=== PATIENT | male | born 1980 | race Caucasian/White ===

== ENCOUNTER 2024-08-28 19:29 | Emergency (ER) | payer OTHER, SELFPAY ==
[2024-08-28 19:33] VITALS: BP 155/106; PULSE 85; O2SAT 100
[2024-08-28 19:42] VITALS: BP 149/76; PULSE 71; RESP 16; TEMP 36.6; O2SAT 100; BMI 22.8
--- NOTE | 2024-08-28 19:46 | ED_ITS ---
HPI - Nausea/Vomiting/Diarrhea General Chief complaint: Nausea/Vomiting/Diarrhea Stated complaint: nausea vomit, hx simialar symtoms had dka in past Time Seen by Provider: 08/28/24 19:46 Source: patient History of Present Illness ED Provider: Zander Salazar DO HPI Narrative: 44-year-old male with insulin-dependent type 1 diabetes presents to the ED for acute onset nausea and nonbilious/nonbloody vomiting episodes starting at 17:00 today, a few hours ago. Patient states he has been taking his insulin regularly and has a monitor on his skin at all times. He did note that his glucose levels were elevated to 300 earlier. He did not have any food prior to the episodes of nausea and vomiting. He denies cannabis use. Denies abdominal pain, difficulty breathing, chest pain, diarrhea, fevers, chills or any other illnesses. He states his symptoms are similar to previous DKA episodes. He has no records here to review. Related Data Previous Rx's ?Medication ?Instructions ?Recorded ondansetron 4 mg disintegrating 4 mg PO Q8H PRN nausea and 08/28/24 tablet vomiting #7 tabs Allergies Allergy/AdvReac Type Severity Reaction Status Date / Time No Known Allergies Allergy Verified 08/28/24 19:42 Review of Systems 2 Review of Systems: Yes all other systems are reviewed and are negative PMFSH Social History Social History Advance Directives: No Advance Directives Information Provided: No Do you have a plan to hurt others: No Plan Physical Exam 2 Vital Signs: Vital Signs: Last Vital Signs Temp 97.9 F 08/28/24 20:02 Pulse 73 08/28/24 20:02 Resp 19 08/28/24 20:02 BP 144/75 H 08/28/24 20:02 Pulse Ox 99 08/28/24 20:02 O2 Del Method Room Air 08/28/24 20:02 BMI result Body Mass Index 22.8 Constitutional: ?Alert, wailing in pain, appears uncomfortable, has 2 episodes of emesis into bag which appears yellow/brown HEENT: ?Tacky mucous membranes Eyes: ?PERRL, EOMI Neck: ?Supple, nontender Chest: ?No chest wall tenderness Respiratory: ?Lungs clear to auscultation, no increased work of breathing Cardio: ?Regular rate and rhythm, no murmur, 2+ radial and DP pulses symmetrically GI: ?Soft, nondistended, nontender Back: ?Normal range of motion, nontender Skin: ?No rash, no lesions Neuro: ?Alert and oriented to person, place and time, moves all 4 extremities, no focal deficits Extremities: ?No swelling or tenderness, full range of motion Psych: ?Anxious, alert and cooperative Medications Administered Discontinued Medications Generic Name Dose Route Start Last Admin Trade Name Rony PRN Reason Stop Dose Admin Haloperidol Lactate 5 mg 08/28/24 19:53 08/28/24 19:58 Haloperidol Lactate 5 Mg/Ml Vial IVPUSH 08/28/24 19:54 5 mg STAT STA Administration Medical Decision Making Medical Decision Making [facility] Narrative: Patient presenting with acute episodes of nausea. Differential diagnosis is broad which includes intra-abdominal pathology such as biliary pathology, pancreatitis, gastritis, cannabinoid hyperemesis syndrome, other cyclic vomiting syndrome and DKA. The patient's glucose here is 171. He is not on SGLT2 inhibitor. It is possible that he is having a euglycemic or mild DKA. Denies alcohol use. He has no tenderness on exam and biliary pathology is unlikely. Given the extent of his nausea, we will treat with haloperidol 5 mg IV and reassess. Patient improved significantly and is discharged to home in a stable state. No signs of DKA given his labs without acidosis and no clinical concerns for any other concerning pathology causing his symptoms. Admission/Observation Consideration of admission/observation: Escalation of care including admission/observation considered Lab Data [facility] Lab Attestation statement: I reviewed the patient's lab results. Labs per my interpretation: Unremarkable sodium, mild hypokalemia to 3.2, low bicarb to 20, unremarkable renal function, elevated BUN, anion gap elevated to 70, glucose of 198, magnesium of 1.8, unremarkable CBC, venous blood gas showing an elevated pH is 7.59 which is likely secondary to the patient's intermittent hyperventilation when he was in pain, bicarb mildly low at 21. Importantly, the patient does not appear to be in DKA. 20:50: The patient appears much more comfortable, in no acute pain distress and has no tenderness on repeat exam. He accepts offered cynthia eddi and tolerates it without recurrent vomiting. We discussed that he should consider stopping cannabis use as this could be contributing to his symptoms. Prescribed a short course of Zofran. Return precautions provided. 08/28/24 20:00 08/28/24 20:00 Labs: Lab Results 08/28/24 08/28/24 08/28/24 Range/Units 19:43 20:00 20:05 WBC 6.1 (4.8-10.8) X10*3/uL RBC 4.61 (4.60-5.80) X10*6/uL Hgb 13.6 L (14.0-18.0) g/dl Hct 39.1 L (42.0-52.0) % MCV 84.8 (80.0-98.0) fL MCH 29.5 (27.0-33.0) pg MCHC 34.8 (31.0-36.0) g/dl RDW 12.0 (11.0-16.0) % Plt Count 263 (160-400) X10*3/uL MPV 10.0 (9.4-12.4) fL Immature Gran % (Auto) 0.3 (0.0-0.4) % Neut % (Auto) 66.3 (45-73) % Lymph % (Auto) 25.5 (20-40) % [place] % (Auto) 7.2 (2-11) % Eos % (Auto) 0.2 (0-4) % Baso % (Auto) 0.5 (0-2) % Lymph # (Auto) 1.6 (1.2-4.9) X10*3/uL [place] # (Auto) 0.4 (0.1-1.2) X10*3/uL Eos # (Auto) 0.0 (0.0-0.4) X10*3/uL Baso # (Auto) 0.0 (0.0-0.2) X10*3/uL Abs Immat Gran (auto) 0.02 (0.00-0.03) X10*3/uL Absolute Neuts (auto) 4.1 (2.0-8.3) x10*3/uL Absolute Nucleated RBC 0.000 (0.0-0.012) X10*3/uL Nucleated RBC % (auto) 0.0 (0.0-0.2) /100WBC VBG pH 7.59 H (7.32-7.43) VBG pCO2 22 mmHg VBG pO2 59 mmHg VBG HCO3 21 L (22-26) mmol/L VBG O2 Saturation 94.0 % VBG Base Excess 2.0 mmol/L Sodium 141 (135-145) mmol/L Potassium 3.2 L (3.3-5.1) mmol/L Chloride 107 (96-108) mmol/L Carbon Dioxide 20 L (22-29) mmol/L Anion Gap 17 (12-20) BUN 21 H (9-16) mg/dL Creatinine 0.96 (0.5-1.4) mg/dL Estim Creat Clear Calc 92.5 Estimated GFR > 60 POC Glucose 171 H (60-115) mg/dL Random Glucose 198 H (60-115) mg/dL Calcium 9.4 (8.4-10.2) mg/dL Magnesium 1.8 (1.6-2.6) mg/dL Total Bilirubin 0.9 (0.0-1.0) mg/dL AST 21 (5-37) U/L ALT 12 (0-40) U/L Alkaline Phosphatase 92 (39-117) U/L Troponin I High Sens 6.5 (<3.5-35.0) ng/L Total Protein 6.9 (6.5-8.0) g/dL Albumin 4.0 (3.5-5.0) g/dL Lipase 8 (8-78) U/L Discharge Plan Discharge Clinical Impression: Drug-induced nausea and vomiting Nausea & vomiting Qualifiers: Vomiting type: unspecified Qualified Code(s): R11.2 - Nausea with vomiting, unspecified Patient Disposition: Home, Self-Care Instructions: Cyclic Vomiting Syndrome (ED) Additional Instructions: You were evaluated for nausea and vomiting. Your labs show no signs of DKA and your glucose was under 200. Your symptoms got better with the medication today called to Haldol. It is highly likely that your symptoms are at least partially contributed by using cannabis every day. This is called cannabis hyperemesis syndrome. We recommend avoiding use of cannabis which may prevent these symptoms from occurring again. If your symptoms recur, you may find benefit from a warm shower. You could also try placing capsaicin ointment on your abdomen. Additionally, I prescribed a short course of Zofran as needed for recurrent vomiting. Please continue to monitor sugars at home , administer appropriate doses of insulin, and if you have any worsening pain, inability to tolerate anything to eat or drink or any other acute concerns or changes, please return to the emergency department. Prescriptions: New ondansetron 4 mg tablet,disintegrating 4 mg PO Q8H PRN (Reason: nausea and vomiting) Qty: 7 0RF Print Language: Montenegrin
[2024-08-28 19:50] LABS: Glucose, Whole Blood 171 mg/dL (60-115)
[2024-08-28] MEDS: Haloperidol Lactate 5 MG/ML VIAL IVPUSH (19:58)
[2024-08-28 20:02] VITALS: BP 144/75; PULSE 73; RESP 19; TEMP 36.6; O2SAT 99
--- NOTE | 2024-08-28 20:03 | MHC.EDTECH ---
Patient BIBA,changed into hospital attire,vitals taken,pt placed on the facility examiner,POC taken and is 171,labs drawn and sent to lab,patient is moaning,tearful,and rolling around the bed,RN at bedside,call kaye in reach
[2024-08-28 20:06] LABS: MANUAL DIFF FLAG NO
[2024-08-28 20:09] LABS: Basophils Percent Auto 0.5 % (0-2); Eosinophils Percent Auto 0.2 % (0-4); Hematocrit 39.1 % (42.0-52.0); Hemoglobin 13.6 g/dl (14.0-18.0); Imm Gran Abs Auto 0.02 X10*3/uL (0.00-0.03); Imm Gran Pct Auto 0.3 % (0.0-0.4); Lymphocytes Absolute Auto 1.6 X10*3/uL (1.2-4.9); Lymphocytes Percent Auto 25.5 % (20-40); Mean Corpuscular HGB Conc 34.8 g/dl (31.0-36.0); Mean Corpuscular Hemoglobin 29.5 pg (27.0-33.0); Mean Corpuscular Volume 84.8 fL (80.0-98.0); Monocytes Absolute Auto 0.4 X10*3/uL (0.1-1.2); Monocytes Percent Auto 7.2 % (2-11); Neutrophils Absolute Auto 4.1 x10*3/uL (2.0-8.3); Neutrophils Percent Auto 66.3 % (45-73); Platelet Count 263 X10*3/uL (160-400); Red Blood Count 4.61 X10*6/uL (4.60-5.80); White Blood Count 6.1 X10*3/uL (4.8-10.8)
[2024-08-28 20:11] LABS: VBG HCO3 21 mmol/L (22-26); VBG pCO2 22 mmHg; VBG pH 7.59 (7.32-7.43); VBG pO2 59 mmHg
[2024-08-28 20:23] LABS: Venous Blood Gas Refer to POC result
[2024-08-28 20:26] LABS: Alanine Aminotransferase 12 U/L (0-40); Alkaline Phosphatase 92 U/L (39-117); Anion Gap 17 (12-20); Aspartate Amino Transferase 21 U/L (5-37); Bilirubin Total 0.9 mg/dL (0.0-1.0); Blood Urea Nitrogen 21 mg/dL (9-16); Calcium 9.4 mg/dL (8.4-10.2); Carbon Dioxide 20 mmol/L (22-29); Chloride 107 mmol/L (96-108); Creatinine Clr Calc Pharmacy 92.5; Estimated Glomerular Filt Rate > 60; Glucose Random 198 mg/dL (60-115); Lipase 8 U/L (8-78); Magnesium 1.8 mg/dL (1.6-2.6); Potassium 3.2 mmol/L (3.3-5.1); Sodium 141 mmol/L (135-145); Total Protein 6.9 g/dL (6.5-8.0)
[2024-08-28 20:34] LABS: Troponin-I High Sensitivity 6.5 ng/L (<3.5-35.0)
--- NOTE | 2024-08-28 21:00 | PC.NURSE ---
pt reports feeling much better s/p haldol administration, pt resting comfortably, respirations even and unlabored. mom at bedside.
[2024-08-28 21:26] VITALS: BP 150/67; PULSE 70; RESP 16; TEMP 36.6; O2SAT 100
== END 2024-08-28 21:27 | disposition home or self-care (01) ==
PROVIDERS: Emergency Provider Emergency Medicine
DX: F12.99 Cannabis use, unspecified with unspecified cannabis-induced disorder (principal); Z79.899 Other long term (current) drug therapy
CPT/HCPCS: 36415; 80053; 82803; 82947; 83690; 83735; 84484; 85025; 96374; 99284; J1630